=== PATIENT | female | born 1995 | race Asian ===

== ENCOUNTER 2018-04-17 04:13 | Emergency (ER) | payer SELFPAY ==
[2018-04-17] MEDS ORDERED: NS 0.9% 1000 ML* 1,000 ML IV ONE (04:44)
--- NOTE | 2018-04-17 04:45 | ED ---
Abdominal Pain/Female - HPI Summary HPI Summary: This is scribe Dawit Jeffdemetrius documenting for attending Dr. Sergio Houser MD. This patient is a 22 year old F presenting to [facility] accompanied by her boyfriend with a chief complaint of constant, sharp mid-lower abd pain since 1 hour ago. It began while she was lying on her bed, awake. Pt felt fine during the day yesterday. The patient rates the pain 7/10 in severity. Patient reports nausea and vomiting while in the ED. Patient denies difficulty passing stools or urinary symptoms. Pt reports that it is not the time of the month where she normally gets menstrual cramps. She states that her cramps are never this bad. Pt was nauseated by the drive over to the ED. No PMHx abd surgery I, Dr. Houser, personally performed the services described in this documentation as scribed in my presence and it is both accurate and complete. - History of Current Complaint Chief Complaint: EDAbdPain Stated Complaint: ABD CRAMPS/PAIN Time Seen by Provider: 04/17/18 04:29 Hx Obtained From: Patient Onset/Duration: Sudden Onset, Lasting Hours - 1 Timing: Constant Severity Initially: Moderate Severity Currently: Moderate Pain Intensity: 7 Pain Scale Used: 0-10 Numeric Location: Umbilical Character: Sharp, Cramping Allergies/Adverse Reactions: Allergies Allergy/AdvReac Type Severity Reaction Status Date / Time No Known Allergies Allergy Verified 04/17/18 04:26 PMH/Surg Hx/FS Hx/Imm Hx History: Denies: Hx Dialysis Sensory History: Denies: Hx Deafness Infectious Disease History: No Infectious Disease History: Denies: Traveled Outside the [place] in Last 30 Days - Family History Known Family History: Negative: Hypertension - Social History Occupation: Student Review of Systems Negative: Fever Positive: Abdominal Pain, Vomiting, Nausea Negative: dysuria, hematuria, incontinence All Other Systems Reviewed And Are Negative: Yes Physical Exam - Summary Physical Exam Summary: Appearance: Well-appearing, Well-nourished, lying in bed comfortably Skin: Warm, dry, no obvious rash Eyes: sclera anicteric, no conjunctival pallor ENT: mucous membranes moist, pharynx appears normal Neck: Supple, nontender Respiratory: Clear to auscultation, no signs of respiratory distress Cardiovascular: Normal S1, S2. No murmurs. Normal distal pulses in tibial and radial bilaterally. Abdomen: Diffuse tenderness in the abd. Distended and tympanic. Musculoskeletal: Normal, Strength/ROM Intact Neurological: A&Ox3, awake and alert, mentation is normal, speech is fluent and appropriate Psychiatric: affect is normal, does not appear anxious or depressed Triage Information Reviewed: Yes Vital Signs On Initial Exam: Initial Vitals Temp Pulse Resp BP Pulse Ox 97.9 F 78 15 108/58 98 04/17/18 04:20 04/17/18 04:20 04/17/18 04:20 04/17/18 04:20 04/17/18 04:20 Vital Signs Reviewed: Yes Diagnostics - Vital Signs Vital Signs Temp Pulse Resp BP Pulse Ox 04/17/18 04:20 97.9 F 78 15 108/58 98 - Laboratory Result Diagrams: 04/17/18 04:47 04/17/18 04:47 Lab Statement: Any lab studies that have been ordered have been reviewed, and results considered in the medical decision making process. Abdominal Pain Fem Course/Dx - Course Course Of Treatment: This is a young woman, basically healthy, presents with a very brief history of acute abdominal pain centering in the periumbilical area. Her abdomen was somewhat tympanitic, mildly distended, but only minimally tender in the right no peritoneal signs. Routine laboratory evaluation is nondiagnostic. The patient was observed and reexamined, and her pain resolved. Her abdominal exam remains benign with no tenderness at present. Accordingly further workup has been deferred, and patient was instructed to return to the ED if her pain recurs. - Diagnoses Provider Diagnoses: Abdominal pain, acute, periumbilical Discharge - Sign-Out/Discharge Documenting (check all that apply): Patient Departure - Discharge Plan Condition: Improved Disposition: HOME Patient Education Materials: Acute Abdominal Pain (ED) Referrals: [facility] [Outside] - Attestation Statements Document Initiated by Scribe: Yes Documenting Scribe: Dawit Juarez Provider For Whom Scribe is Documenting (Include Credential): Sergio Houser MD Scribe Attestation: Dawit Carson, scribed for Sergio Houser MD on 04/17/18 at 0612.
[2018-04-17 05:06] LABS: ABS Basophils 0 10^3/ul (0-0.2); ABS Eosinophils 0.2 10^3/ul (0-0.6); ABS Lymphocytes 2.2 10^3/ul (1.0-4.8); ABS Monocytes 0.3 10^3/ul (0-0.8); ABS Neutrophils 2.8 10^3/ul (1.5-7.7); ABS Nucleated RBC 0 10^3/ul; Eosinophil % 2.7 % (0-6); Hematocrit 37 % (35-47); Hemoglobin 12.3 g/dl (12.0-16.0); Lymphocyte % 40.4 % (25-47); Mean Corpuscular HGB Conc 33 g/dl (31-36); Mean Corpuscular Hemoglobin 32 pg (27-31); Mean Corpuscular Volume 97 fL (80-97); Mean Platelet Volume 7.6 um3 (7.4-10.4); Nucleated Red Blood Cells % 0.1; Platelet Count 234 10^3/ul (150-450); Red Blood Count 3.82 10^6/ul (4.00-5.40); Red Cell Distribution Width 12 % (10.5-15); White Blood Count 5.5 10^3/ul (3.5-10.8)
[2018-04-17 05:16] LABS: EGFR Non-African American 98.5 (>60)
[2018-04-17 05:44] LABS: Urine Appearance Cloudy; Urine Blood Negative (Negative); Urine Color Yellow; Urine Ketones 1+ (Negative); Urine Protein Negative (Negative); Urine Specific Gravity 1.021 (1.010-1.030); Urine Urobilinogen Negative (Negative)
[2018-04-17 06:46] VITALS: BP 125/79
== END 2018-04-17 06:45 | disposition home or self-care (01) ==
LOC: ED 04:13
DX: R10.33 Periumbilical pain (principal)
CPT/HCPCS: 36415; 80053; 81003; 83690; 84702; 85025; 86140; 99282

== ENCOUNTER 2018-11-28 05:56 | Emergency (ER) | payer OTHER ==
--- NOTE | 2018-11-28 06:19 | ED ---
Throat Pain/Nasal Congestion - HPI Summary HPI Summary: Pt. is a 23 y.o female who presents to the ER for sore throat and fever that started Gus, 5 days ago. Patient denies past medical history. Immunizations are up-to-date. Patient student at [employer]. Patient states she was seen by the [facility] last week and was started on penicillin. She states she had a strep test but is unsure of the results. Patient states that her pain has increased and she is having difficulty swallowing secondary to pain. Patient states she is able to drink liquids today. Symptoms are mild in severity. Denies associated symptoms of chest pain, shortness of breath, cough, abdominal pain, vomiting, diarrhea, urinary symptoms. Patient does note after a few days of penicillin she developed a rash on her arms. Patient is symptoms discontinued penicillin. Swallowing makes symptoms worse. Nothing makes symptoms better. - History of Current Complaint Chief Complaint: EDThroatPain Time Seen by Provider: 11/28/18 06:08 Hx Obtained From: Patient - Allergies/Home Medications Allergies/Adverse Reactions: Allergies Allergy/AdvReac Type Severity Reaction Status Date / Time Penicillins Allergy Hives/Diff. Verified 11/28/18 06:01 Breathing/I tching PMH/Surg Hx/FS Hx/Imm Hx Previously Healthy: Yes History: Denies: Hx Dialysis Sensory History: Denies: Hx Deafness Infectious Disease History: No Infectious Disease History: Reports: Traveled Outside the [place] in Last 30 Days - [place] - Family History Known Family History: Positive: Non-Contributory Negative: Hypertension - Social History Occupation: Student Lives: Dormitory/Roommates Alcohol Use: None Substance Use Type: Reports: None Smoking Status (MU): Never Smoked Tobacco Review of Systems Positive: Fever, Chills Eyes: Negative Positive: Sore Throat Cardiovascular: Negative Negative: Chest Pain Respiratory: Negative Negative: Shortness Of Breath, Cough Gastrointestinal: Negative Negative: Abdominal Pain, Vomiting, Diarrhea, Nausea Genitourinary: Negative Negative: dysuria Musculoskeletal: Negative Positive: Rash Neurological: Negative All Other Systems Reviewed And Are Negative: Yes Physical Exam Triage Information Reviewed: Yes Vital Signs On Initial Exam: Initial Vitals Temp Pulse Resp BP Pulse Ox 101.7 F 83 18 110/64 99 11/28/18 05:59 11/28/18 05:59 11/28/18 05:59 11/28/18 05:59 11/28/18 05:59 Vital Signs Reviewed: Yes Appearance: Positive: Well-Appearing - Pt. sitting on bed in NAD. SO present. Skin: Positive: Warm, Dry Head/Face: Positive: Normal Head/Face Inspection Eyes: Positive: Normal, EOMI, RADHA, Conjunctiva Clear ENT: Positive: TMs normal, Other - Marked bilateral tonsilar edema with exudates onthe right. Uvula is midline without deviation. No trismus. No drooling or muffled voice. Neck: Positive: Supple, Enlarged Nodes @ - bilateral anterior cervical. Negative: Nuchal Rigidity Respiratory/Lung Sounds: Positive: Clear to Auscultation, Breath Sounds Present Cardiovascular: Positive: Normal, RRR Abdomen Description: Positive: Nontender, Soft Neurological: Positive: Normal, CN Intact II-III Psychiatric: Positive: Affect/Mood Appropriate Diagnostics - Vital Signs Vital Signs Temp Pulse Resp BP Pulse Ox 11/28/18 05:59 101.7 F 83 18 110/64 99 - Laboratory Result Diagrams: 11/28/18 06:37 11/28/18 06:37 Lab Statement: Any lab studies that have been ordered have been reviewed, and results considered in the medical decision making process. EENT Course/Dx - Course Course Of Treatment: Pt. presenting for tonsilitis. Fever, VS otherwise normal. Pt. tolerating secretions. No evidence of abscess on exam. Suspect mono. Pt. given IV fluids, toradol, and decadron. Basic labs ordered. Monospot is postive. Elevated lymphs. Mildly elevated liver enzymes. On re-exam pt. is feeling a bit better. She is tolerating water in ED. Results discussed. Will dc home to continue supportive care. Advised no contact sports for 4-6 weeks. To schedule close f.u with [facility]. Motrin for pain and fever as directed. To return to ER if sxs change or worsen. Pt. understands and agrees with plan. - Differential Diagnoses Differential Diagnoses: Dental Abscess, Influenza, Laryngitis, Manish's Angina, Mastoiditis, Pharyngitis, Sinusitis, Tonsilitis - Diagnoses Provider Diagnoses: Mononucleosis Discharge - Sign-Out/Discharge Documenting (check all that apply): Patient Departure Patient Received Moderate/Deep Sedation with Procedure: No - Discharge Plan Condition: Improved Disposition: HOME Patient Education Materials: Mononucleosis (ED) Forms: *School Release Referrals: [facility] [Outside] - 2 Days Additional Instructions: Schedule a follow up appointment with [facility] Discontinue antibiotic Increase fluids and rest Motrin for fever and pain as directed No contact sports/activities for 4-6 weeks Return to ER if symptoms change or worsen - Billing Disposition and Condition Condition: IMPROVED Disposition: Home
[2018-11-28] MEDS ORDERED: NS 0.9% 1000 ML** 1,000 ML IV ONE (06:26)
[2018-11-28] MEDS ORDERED: Dexamethasone IV* 4 MG/ML 1 ML (4 MG) IV SLOW PU ONE (06:26)
[2018-11-28] MEDS ORDERED: Ketorolac INJ* 30 MG/ML 1 ML VIAL IV PUSH ONE (06:26)
[2018-11-28 06:45] LABS: Hematocrit 39 % (35-47); Hemoglobin 13.2 g/dL (12.0-16.0); Mean Corpuscular HGB Conc 34 g/dL (31-36); Mean Corpuscular Hemoglobin 32 pg (27-31); Mean Corpuscular Volume 96 fL (80-97); Mean Platelet Volume 7.7 fL (7.4-10.4); Platelet Count 170 10^3/uL (150-450); Red Cell Distribution Width 13 % (10.5-15); White Blood Count 9.6 10^3/uL (3.5-10.8)
[2018-11-28 07:04] LABS: Albumin/Globulin Ratio 1.1 (1-3); Calcium 9.2 mg/dL (8.6-10.3); EGFR Non-African American 97.5 (>60); Globulin 3.8 g/dL (2-4); Potassium 4.2 mmol/L (3.5-5.0); Total Bilirubin 0.5 mg/dL (0.2-1.0); Total Protein 7.8 g/dL (6.4-8.9)
[2018-11-28 07:20] LABS: ABS Neutrophils 4.4 10^3/ul (1.5-7.7)
[2018-11-28 07:57] VITALS: BP 112/63
== END 2018-11-28 08:20 | disposition home or self-care (01) ==
LOC: ED 05:56
DX: B27.90 Infectious mononucleosis, unspecified without complication (principal); Z88.0 Allergy status to penicillin
CPT/HCPCS: 36415; 80053; 85025; 85060; 86308; 96361; 96374; 96375; 99283; J1100; J1885